=== PATIENT | male | born 1955 | race Caucasian/White ===

== ENCOUNTER 2025-03-30 06:21 | Day surgery (SDC) | payer OTHER, SELFPAY | END 2025-03-30 12:56 | disposition home or self-care (01) | LOC: GI 06:21 | PROVIDERS: ATTENDING PHYSICIAN Internal Medicine Gastroenterology | DX: Z12.11 Encounter for screening for malignant neoplasm of colon (principal); R19.4 Change in bowel habit; K64.0 First degree hemorrhoids; K62.89 Other specified diseases of anus and rectum; K63.5 Polyp of colon; Z86.0100 Personal history of colon polyps, unspecified | CPT/HCPCS: 45380; 88305 ==